=== PATIENT | female | born 1985 | race Caucasian/White ===

== ENCOUNTER 2016-03-06 15:11 | Emergency (ER) | payer OTHER ==
[~2016-03-06] VITALS: Ht 154.9 cm; Wt 44.5 kg
[2016-03-06 15:11] VITALS: BP 141/109
[2016-03-06] MEDS ORDERED: LORAZEPAM INJ 2 MG/ML VIAL IM ONE (15:30)
[2016-03-06] MEDS ORDERED: LORAZEPAM INJ 2 MG/ML VIAL ONE (15:36)
[2016-03-06] MEDS ORDERED: diphenhydrAMINE HCL 50 MG/ML VIAL IM ONE (16:00)
[2016-03-06] MEDS ORDERED: diphenhydrAMINE HCL 50 MG/ML VIAL ONE ×2 (16:14→16:16)
== END 2016-03-06 16:45 | disposition home or self-care (01) ==
LOC: ER 15:14
DX: F41.9 Anxiety disorder, unspecified (principal); F17.200 Nicotine dependence, unspecified, uncomplicated
CPT/HCPCS: A4606; J1200; J2060; Z7610